=== PATIENT | female | born 1990 | race Caucasian/White ===

== ENCOUNTER 2016-04-22 08:02 | Emergency (ER) | payer OTHER ==
[2016-04-22] MEDS ORDERED: LIDOCAINE PATCH 5% TOP STA (08:12)
[2016-04-22] MEDS ORDERED: CYCLOBENZAPRINE 10 MG TABLET PO STA (08:12)
[2016-04-22] MEDS ORDERED: oxyCOD/ACETAMIN 5 MG/325 MG TABLET PO STA (08:12)
[2016-04-22] MEDS ORDERED: DEXAMETHASONE 10 MG/ML VIAL PO STA (08:12)
[2016-04-22] MEDS ORDERED: oxyCOD/ACETAMIN 5 MG/325 MG TABLET PO ONE (08:21)
[2016-04-22] MEDS ORDERED: CHERRY SYRUP 10 ML UDC PO ONE (08:21)
[2016-04-22] MEDS ORDERED: CYCLOBENZAPRINE 10 MG TABLET PO ONE (08:21)
[2016-04-22] MEDS ORDERED: DEXAMETHASONE 10 MG/ML VIAL ONE (08:22)
[2016-04-22] MEDS ORDERED: LIDOCAINE PATCH 5% TOP ONE (08:22)
[2016-04-22] MEDS ORDERED: diazePAM 5 MG TABLET PO STA (08:53)
[2016-04-22] MEDS ORDERED: diazePAM 5 MG TABLET PO ONE (09:08)
== END 2016-04-22 10:30 | disposition home or self-care (01) ==
DX: M54.5 Low back pain (principal)
CPT/HCPCS: 99283; 99284; A9270